=== PATIENT | male | born 1960 | race Caucasian/White ===

== ENCOUNTER → 2024-02-03 13:25 | Outpatient (BNVA) | payer OTHER, SELFPAY | PROVIDERS: Family Provider Nurse Practitioner Family; Visit Provider Nurse Practitioner Family | DX: Z12.5 Encounter for screening for malignant neoplasm of prostate (principal); Z87.898 Personal history of other specified conditions; F10.11 Alcohol abuse, in remission; Z80.0 Family history of malignant neoplasm of digestive organs; Z12.11 Encounter for screening for malignant neoplasm of colon; K46.9 Unspecified abdominal hernia without obstruction or gangrene | CPT/HCPCS: 80053; 80061; 85025; G0103 ==